=== PATIENT | female | born 1945 | race Hispanic/Latino ===

== ENCOUNTER 2020-05-01 14:33 | Emergency (ER) | payer OTHER ==
[~2020-05-01] VITALS: Ht 152.4 cm; Wt 55.2 kg
[2020-05-01] MEDS ORDERED: MEDDOSEPAK PO (16:04)
[2020-05-01] MEDS ORDERED: NAPROXEN375 MG PO (16:04)
[2020-05-01 16:10] VITALS: BP 155/74
[2020-05-01] MEDS ORDERED: TRAMADOL HYDROC50 M1 PO (16:24)
== END 2020-05-01 16:43 | disposition home or self-care (01) ==
LOC: ED 14:33
DX: M16.11 Unilateral primary osteoarthritis, right hip (principal); M54.31 Sciatica, right side